=== PATIENT | male | born 1955 | race African-American/Black ===

== ENCOUNTER → 2019-10-10 | Outpatient (CLI) | payer OTHER ==
[~2019-10-10] MED LIST: IOPAMIDOL 370 MG/ML 200 ML INFUS..BTL INJ ONE; SODIUM CHLORIDE 0.9% 250ML 0 ML ONE; SODIUM CHLORIDE 0.9% 500ML 500 ML ONE; SODIUM CHLORIDE 0.9% 50ML 0 ML ONE; SODIUM CHLORIDE 0.9% 50ML 50 ML ONE
[2019-10-10 08:05] LABS: CREATININE, SERUM 1.54 mg/dL (0.72-1.25)
--- NOTE | 2019-10-10 09:45 | Diagnostic Imaging Report ---
EXAM: CT Abdomen and Pelvis WITH intravenous contrast INDICATION: Prostate cancer, hydrocele COMPARISON: None. TECHNIQUE: Abdomen and pelvis were scanned utilizing a multidetector helical scanner from the lung base to the pubic symphysis after administration of IV contrast. Coronal and sagittal reformations were obtained. Routine protocol was performed. Scan was performed during portal venous phase. IV CONTRAST: 100mL of Isovue 370 ORAL CONTRAST: Water RADIATION DOSE: Total DLP: 895.9 mGy*cm Dose modulation, iterative reconstruction, and/or weight based adjustment of the mA/kV was utilized to reduce the radiation dose to as low as reasonably achievable. FINDINGS: LOWER THORAX: Posterior right lower lobe calcified granuloma. No focal lung base consolidation. HEPATOBILIARY: Diffuse hepatic steatosis. No focal liver lesion. No biliary ductal dilation. Unremarkable gallbladder. SPLEEN: No splenomegaly. PANCREAS: No focal masses or ductal dilatation. ADRENALS: No adrenal nodules. KIDNEYS/URETERS: No hydronephrosis, stones, or solid mass lesions. Scattered bilateral subcentimeter renal cysts. PELVIC ORGANS/BLADDER: Status post prostatectomy. PERITONEUM / RETROPERITONEUM: No free air or fluid. LYMPH NODES: No lymphadenopathy. VESSELS: Scattered atherosclerotic calcifications of the nonaneurysmal abdominal aorta and major branches. GI TRACT: Mild diverticulosis. No CT evidence of diverticulitis. No abnormal bowel thickening. No bowel obstruction. Normal appendix. BONES AND SOFT TISSUES: No acute osseous injury. No suspicious lytic or blastic lesions. Degenerative changes of both hip joints right greater than left. Subchondral sclerosis and subchondral cystic changes at the right hip joint. Partially visualized right greater than left hydroceles. IMPRESSION: No evidence of metastatic disease in the abdomen or pelvis. Diffuse hepatic steatosis. Partially visualized right greater than left hydroceles. Signed by: Vishnu Peñaloza MD on 10/10/2019 9:42 AM
== END ==
LOC: CT 07:16
PROVIDERS: ATTEND Urology
DX: N43.3 Hydrocele, unspecified (principal); N45.1 Epididymitis
CPT/HCPCS: 36415; 74177; 82565; 84520; J7040; Q9967; J7050

== ENCOUNTER 2021-04-18 14:09 | Outpatient (RCR) | payer OTHER | END 2021-04-25 | LOC: PT 14:09 | PROVIDERS: ATTEND Specialist | DX: M17.12 Unilateral primary osteoarthritis, left knee (principal) ==

== ENCOUNTER 2021-05-23 07:00 | Outpatient (RCR) | payer OTHER | END 2021-05-25 | LOC: PT 07:00 | PROVIDERS: ATTEND Specialist | DX: M17.12 Unilateral primary osteoarthritis, left knee (principal) ==

== ENCOUNTER 2022-06-05 06:00 | Observation (INO) | payer OTHER ==
[2022-06-02 08:28] LABS: BASOPHILS % 0.3 % (0.0-1.0); HEMOGLOBIN 13.8 g/dL (14.0-18.0); LYMPHOCYTES # (AUTO) 1.2 (1.0-3.2); LYMPHOCYTES % 40.5 % (18.0-39.1); MEAN CORPUSCULAR HEMOGLOBIN 28.8 pg (28-32); MEAN CORPUSCULAR HGB CONC 32.1 g/dL (31-35); MEAN CORPUSCULAR VOLUME 89.8 fL (81-99); MONOCYTES # (AUTO) 0.3 (0.2-0.8); MONOCYTES % 8.9 % (4.4-11.3); NEUTROPHILS # (AUTO) 1.5 (2.1-6.9); PLATELET COUNT 232 x10e3/uL (140-360); RED BLOOD COUNT 4.79 x10e6/uL (4.3-5.7); RED CELL DISTRIBUTION WIDTH 12.1 % (11.7-14.4)
[2022-06-02 09:18] LABS: ANION GAP 12.1 mmol/L (8-16); CALCIUM 8.9 mg/dL (8.4-10.2); CREATININE, SERUM 1.6 mg/dL (0.72-1.25); POTASSIUM 4.1 mmol/L (3.5-5.1)
[~2022-06-05] VITALS: Ht 175.3 cm; Wt 93.4 kg
[~2022-06-05 06:00] MED LIST changes: -IOPAMIDOL 370 MG/ML 200 ML INFUS..BTL INJ ONE; -SODIUM CHLORIDE 0.9% 250ML 0 ML ONE; -SODIUM CHLORIDE 0.9% 500ML 500 ML ONE; -SODIUM CHLORIDE 0.9% 50ML 0 ML ONE; -SODIUM CHLORIDE 0.9% 50ML 50 ML ONE; +TELMISARTAN-HC1 EACH PO
[2022-06-05] MEDS ORDERED: DEXAMETHASONE SOD PHOS 10 MG/1 ML VIAL ONE (07:01)
[2022-06-05] MEDS ORDERED: GABAPENTIN 300 MG CAP ONE (07:01)
[2022-06-05] MEDS ORDERED: CELECOXIB 200 MG CAP ONE (07:01)
[2022-06-05] MEDS ORDERED: BUPIVACAINE 7.5MG/ML /DEXTROSE 82.5MG/ML 2 ML AMP INJ ONE (07:29)
[2022-06-05] MEDS ORDERED: ROPIVACAINE 246.25 MG, EPINEPHRINE HCL 1:1000 1ML 0.5 MG, CLONIDINE HCL 0.08 MG, KETORO... INJ ONE ×5 (08:00)
[2022-06-05] MEDS ORDERED: TRANEXAMIC ACID 20 ML ONE (08:10)
[2022-06-05] MEDS ORDERED: SODIUM CHLORIDE 0.9% 500ML 500 ML ONE (08:11)
[2022-06-05] MEDS ORDERED: Vancomycin IV 1,000 MG ONE (08:11)
[2022-06-05] MEDS ORDERED: SODIUM CHLORIDE 0.9% 1000ML 1,000 ML IV SCH (10:15)
[2022-06-05] MEDS ORDERED: ACETAMINOPHEN 650 MG SUPP PR PRN (10:15)
[2022-06-05] MEDS ORDERED: ONDANSETRON HCL INJ 2MG/ML 2ML 2 MG/ML VIAL IV PRN (10:15)
[2022-06-05] MEDS ORDERED: HYDROCODONE/APAP 7.5MG-325MG 1 EA TAB PO PRN (10:15)
[2022-06-05] MEDS ORDERED: DOCUSATE SODIUM 100 MG CAP PO PRN (10:15)
[2022-06-05] MEDS ORDERED: HYDROCODONE/APAP 5MG-325MG TAB PO PRN (10:15)
[2022-06-05] MEDS ORDERED: DIPHENHYDRAMINE HCL INJ 50 MG/ML VIAL IV PRN (10:15)
[2022-06-05] MEDS ORDERED: ZOLPIDEM TARTRATE 5 MG TAB PO PRN (10:15)
[2022-06-05] MEDS ORDERED: KETOROLAC TROMETHAMINE 30 MG/ML VIAL IV PRN (10:15)
[2022-06-05 14:09] VITALS: BP_SYST 131; BP_DIAS 78; BP_DIAS 80
[2022-06-05 14:19] VITALS: BP 131/78
[2022-06-05] MEDS ORDERED: ASPIRIN 325 MG TAB PO SCH (17:00)
[2022-06-05] MEDS ORDERED: CELECOXIB 100 MG CAP PO SCH (17:00)
[2022-06-05] MEDS ORDERED: ACETAMINOPHEN 1000 MG/100 ML IV PRN (18:00)
[2022-06-06] MEDS ORDERED: CELECOXIB 200 MG CAP PO SCH (09:00)
== END 2022-06-05 19:15 | disposition home health service (06) ==
LOC: OR 06:00 → PACU V 10:15 → MED/SURG 13:42
PROVIDERS: ADMIT Specialist; ATTEND Specialist
DX: M16.11 Unilateral primary osteoarthritis, right hip (principal); I10 Essential (primary) hypertension; E78.5 Hyperlipidemia, unspecified; M54.31 Sciatica, right side; M54.16 Radiculopathy, lumbar region; I12.9 Hypertensive chronic kidney disease with stage 1 through stage 4 chronic kidney disease, or unspecified chronic kidney disease; N18.32 Chronic kidney disease, stage 3b; Z01.818 Encounter for other preprocedural examination; Z20.822 Contact with and (suspected) exposure to COVID-19
CPT/HCPCS: 0223U; 27447; 36415; 72170; 80048; 85025; 86850; 86900; 86920 ×2; 94799; 97110; 97116 ×2; 97139 ×2; 97161; 97530 ×2; G0378; J0171; J0690; J1100; J1885; J2795; J3370; J7040; C1713; C1776

== ENCOUNTER 2022-06-22 10:00 | Outpatient (RCR) | payer OTHER | END 2022-06-25 | LOC: PT 10:00 | PROVIDERS: ATTEND Physician Assistant | DX: Z47.89 Encounter for other orthopedic aftercare (principal) ==

== ENCOUNTER 2022-07-25 09:59 | Outpatient (RCR) | payer OTHER | END 2022-07-26 | LOC: PT 09:59 | PROVIDERS: ATTEND Physician Assistant | DX: Z47.89 Encounter for other orthopedic aftercare (principal) ==

== ENCOUNTER 2022-08-09 09:59 | Outpatient (RCR) | payer OTHER | END 2022-08-25 | LOC: PT 09:59 | PROVIDERS: ATTEND Physician Assistant | DX: Z47.89 Encounter for other orthopedic aftercare (principal) ==

== ENCOUNTER 2022-12-14 08:14 | Emergency (ER) | payer BC, MEDICARE ==
[~2022-12-14] VITALS: Ht 175.3 cm; Wt 95.3 kg
[2022-12-14 08:46] LABS: BASOPHILS % 0.6 % (0.0-1.0); EOSINOPHILS % 0.9 % (0.0-6.0); HEMATOCRIT 44.9 % (38.2-49.6); HEMOGLOBIN 14.8 g/dL (14.0-18.0); LYMPHOCYTES # (AUTO) 1.2 (1.0-3.2); LYMPHOCYTES % 34.4 % (18.0-39.1); MEAN CORPUSCULAR HEMOGLOBIN 29.2 pg (28-32); MEAN CORPUSCULAR VOLUME 88.6 fL (81-99); MONOCYTES # (AUTO) 0.3 (0.2-0.8); MONOCYTES % 9.5 % (4.4-11.3); NEUTROPHILS # (AUTO) 1.8 (2.1-6.9); NEUTROPHILS % 54.6 % (38.7-80.0); PLATELET COUNT 237 x10e3/uL (140-360); RED BLOOD COUNT 5.07 x10e6/uL (4.3-5.7); RED CELL DISTRIBUTION WIDTH 12.3 % (11.7-14.4)
[2022-12-14 09:09] LABS: ALBUMIN 3.9 g/dL (3.5-5.0); ALBUMIN/GLOBULIN RATIO 1.3 (0.8-2.0); ANION GAP 15.1 mmol/L (8-16); CALCIUM 9.3 mg/dL (8.4-10.2); CREATININE, SERUM 1.61 mg/dL (0.72-1.25); POTASSIUM 4.1 mmol/L (3.5-5.1)
[2022-12-14 12:47] VITALS: BP 177/100
== END 2022-12-14 12:57 | disposition home or self-care (01) ==
LOC: ER 08:18
DX: R07.89 Other chest pain (principal); I10 Essential (primary) hypertension; Z20.822 Contact with and (suspected) exposure to COVID-19; Z85.46 Personal history of malignant neoplasm of prostate
CPT/HCPCS: 36415; 71045; 80053; 83690; 84484; 85025; 93005; 99284; U0002